=== PATIENT | male | born 1940 | race Caucasian/White ===

== ENCOUNTER → 2021-02-08 | Outpatient (CLI) | payer MEDICARE ==
--- NOTE | 2021-02-08 21:57 | CONS ---
CONSULTATION DATE OF SERVICE: 02/08/2021 80-year-old gentleman has [facility] for possible obstructive sleep apnea-hypopnea syndrome. HISTORY OF PRESENT ILLNESS: SLEEP SCHEDULE: Patient's usual sleep schedule from 10 p.m. to about 6:00 am. FALLING ASLEEP: No problems with falling asleep, although has TV set in bedroom. DURING SLEEP: Usually sleeps on the side position. According to his , he has snoring and witnessed by her episodes of stopped breathing during sleep. He wakes up from sleep 2 times with nocturia. DURING THE DAY/SLEEP WAKE EVALUATION: No history of hypnagogic hallucinations, sleep paralysis or cataplexy. [place] Sleepiness Scale is 3. Patient usually does not take any naps. PAST MEDICAL HISTORY: Positive for hypertension, BPH, acid reflux, kidney stones. PAST SURGICAL HISTORY: Surgery for kidney stones, hernia repair. MEDICATIONS: Rosuvastatin 40 mg once a day, fenofibrate 160 mg once a day, tamsulosin 0.8 mg twice a day, losartan 25 mg once a day, omeprazole 20 mg once a day, aspirin 81 mg once a day. SOCIAL HISTORY: Negative for smoking at the present time. Alcohol consumption occasional. FAMILY HISTORY: Heart problems, snoring. REVIEW OF SYSTEMS: Multiple awakenings from sleep. No chest pain. No abdominal pain. No blood in the stool or urine at the present time. PHYSICAL EXAMINATION: GENERAL: gentleman without distress. BP 140/65, HR 72, RR 15, height 5 feet 9-1/2 inches, weight 168. Temperature 97.8, oxygen saturation at room air 95%. Oropharynx extremely low position of soft palate, Mallampati 4. NECK: 15 inches in circumference. NECK: Supple, no JVD. Thyroid is not palpable. LUNGS: Clear to percussion and to auscultation. Good air exchange. No wheezing or rhonchi. HEART: S1, S2 regular. No murmurs, gallops, or rubs. ABDOMEN: Soft and nontender. Bowel sounds are present. No organomegaly appreciated. EXTREMITIES: No clubbing or cyanosis. R[employer] HELPER: Awake, alert, and oriented X3. Cranial nerves 2 to 7 intact. There is no fasciculation or atrophy. noted. No focal deficits observed. IMPRESSION: 1. Snoring witnessed episodes of stopped breathing during sleep by the . Extremely low position of soft palate, Mallampati 4. Obstructive sleep apnea- hypopnea syndrome. 2. Hypertension. 3. Benign prostatic hypertrophy. 4. Acid reflux. 5. History of kidney stones status post surgical treatment. 6. Status post right shoulder surgery. 7. Status post hernia repair many years ago. PLAN: 1. Home sleep apnea test for evaluation of patient breathing during sleep. 2. CPAP/BiPAP titration if sleep study confirms obstructive sleep apnea-hypopnea syndrome. 3. Preferable position during sleep on the side. 4. No driving if patient feels any sleepiness. 5. I will see patient for follow up visit to explain results of testing and following plan. Thank you very much for referring this patient for consultation. Sincerely, Justino Padron MD, PhD, FAASM Diplomat of [place] [employer] Sleep Medicine Board of [place] [employer] [facility] [place] MMODL / EDISONN: [id number] /
== END ==
LOC: SLEEP 15:21
PROVIDERS: ATTEND Internal Medicine
DX: G47.33 Obstructive sleep apnea (adult) (pediatric) (principal); I10 Essential (primary) hypertension; K21.9 Gastro-esophageal reflux disease without esophagitis; Z98.890 Other specified postprocedural states; N40.0 Benign prostatic hyperplasia without lower urinary tract symptoms; Z87.442 Personal history of urinary calculi; Z79.899 Other long term (current) drug therapy
CPT/HCPCS: 99202

== ENCOUNTER 2024-05-05 07:43 | Day surgery (SDC) | payer MEDICARE ==
[~2024-05-05 07:43] MED LIST: ALPRAZolam 0.25 MG TAB PO PRN; ALPRAZolam 0.5 MG TAB PO PRN; ASPIRIN 325 MG TAB PO ONE; ATORVASTATIN 80 MG TAB PO ONE; HEPARIN SODIUM,PORCINE (1 ML) 2,500 UNIT in SODIUM CHLORIDE 0.9% 250 ML IRRIGATION PRN; HEPARIN SODIUM,PORCINE 10,000 UNIT in SODIUM CHLORIDE 0.9% 1,000 ML IRRIGATION PRN; NITROGLYCERIN SL TABS 0.4 MG TAB SUBLINGUAL PRN
[2024-05-05] MEDS: SODIUM CHLORIDE 0.9% 1,000 ML in EMPTY BAG 1 BAG IV SCH (08:00)
[2024-05-05] MEDS: SODIUM CHLORIDE 0.9% 1,000 ML IV ONE (08:00)
[2024-05-05 08:03] VITALS: RESP 16; TEMP 97.1
[2024-05-05 08:08] LABS: Basophils # (A) 0.1 k/uL (0-0.2); Basophils % (A) 1 %; Eosinophils # (A) 0.3 k/uL (0-0.7); Eosinophils % (A) 5 %; HCT 44.9 % (39.0-53.0); HGB 14.3 gm/dL (13.0-17.5); Lymphocytes # (A) 1.8 k/uL (1.0-4.8); Lymphocytes % (A) 27 %; MCH 30.6 pg (25.0-35.0); MCHC 31.9 g/dL (31.0-37.0); MCV 95.7 fL (80.0-100.0); Mean Platelet Volume 8.2; Monocytes # (A) 0.4 k/uL (0-1.0); Monocytes % (A) 7 %; Neutrophils # (A) 3.8 k/uL (1.3-7.7); Neutrophils % (A) 58 %; Platelet Count 320 k/uL (150-450); RBC 4.69 m/uL (4.30-5.90); RDW 13.8 % (11.5-15.5); WBC 6.6 k/uL (3.8-10.6)
[2024-05-05 08:22] LABS: African American GFR (CKD) 55 (>60 ml/min/1.73 sqM); Anion Gap 8 mmol/L; Blood Urea Nitrogen 30 mg/dL (9-20); Calcium 9.9 mg/dL (8.4-10.2); Carbon Dioxide 26 mmol/L (22-30); Chloride 107 mmol/L (98-107); Glucose 96 mg/dL (74-99); Non-African American GFR(CKD) 47 (>60 ml/min/1.73 sqM); Potassium 4.5 mmol/L (3.5-5.1); Sodium 141 mmol/L (137-145)
[2024-05-05] MEDS: fentaNYL (PF) 50 MCG/ML 2 ML AMP IVP ONE (09:09)
[2024-05-05] MEDS: MIDAZOLAM 2 MG/2 ML VIAL IVP ONE (09:09)
[2024-05-05] MEDS: LIDOCAINE 1% INJ 10MG/ML (20 ML MDV) SQ ONE (09:10)
[2024-05-05] MEDS: VERAPAMIL SYRINGE (5 MG/10 ML) INTRAARTER ONE (09:11)
[2024-05-05] MEDS: HEPARIN SODIUM 1,000 UN/ML (10ML VL) IV ONE (09:14)
[2024-05-05] MEDS: IOPAMIDOL-370 100ML BTL INJ ONE (09:25)
[2024-05-05 12:49] VITALS: BP 131/63; PULSE 54
--- NOTE | 2024-05-05 13:10 | P.CARDCATH ---
Description of Procedure: PROCEDURES PERFORMED: Left heart catheterization, bilateral coronary angiography, ultrasound guided arterial access INDICATION: cardiomyopathy CONSENT:I have discussed the risks, benefits and alternative therapies for the above-mentioned procedure and for both sedation/analgesia as well as necessary blood product administration, if indicated, as they pertain to this patient. The patient has indicated understanding and acceptance of the risks and procedures discussed. PROCEDURE: After the risks, benefits and alternatives of the above mentioned procedure explained in detail with the patient, informed consent was obtained. Patient was taken to the catheterization lab and prepped and draped in usual fashion. Ultrasound guidance was used to assess for arterial access. 1% lidocaine was used to anesthetize the right radial artery. A 6-Portuguese sheath was placed in the right radial artery using modified Seldinger technique and ultrasound guidance. Left coronary angiography was performed with a 5-Portuguese JL 3.5 catheter and right coronary angiography was performed with a 5-Portuguese FR5 catheter in various views. A 5-Portuguese FR5 catheter was inserted into the left ventricle and pressure measurements were obtained. The right radial sheath was removed and a TR band was placed with hemostasis achieved. The patient tolerate d the procedure well. Patient was transported back to the post catheterization holding area in stable condition. Conscious Sedation: Patient was monitored under the direct supervision of myself for conscious sedation using Versed and fentanyl for a total duration of 10 minutes HEMODYNAMICS: aorta: 141/76 LV: 142/5, LVEDP 17 SELECTIVE CORONARY ARTERIOGRAPHY: LEFT MAIN: The left main is a large caliber vessel which bifurcates into the LAD and circumflex. There is no significant stenosis. LEFT ANTERIOR DESCENDING CORONARY ARTERY: LAD is a large caliber vessel which wraps around to the apex. There are mild luminal irregularities LEFT CIRCUMFLEX CORONARY ARTERY: Left circumflex is a moderate caliber vessel with mid circumflex 30-40%. RIGHT CORONARY ARTERY: The right coronary artery is a large caliber vessel which gives off a PDA and PLV branch and is the dominant vessel. There is mid 30-40% stenosis. FINAL IMPRESSION: 1. CAD as described above including 30-40% RCA and 30-40% circumflex stenosis 2. Mildly elevated left sided filling pressures PLAN: 1. Aggressive risk factor modification per most recent ACC/AHA guidelines. 2. Follow-up in the office in 1-2 weeks.
== END 2024-05-05 13:16 | disposition home or self-care (01) ==
LOC: CATHCVL 07:43
PROVIDERS: ATTEND Internal Medicine
DX: I25.10 Atherosclerotic heart disease of native coronary artery without angina pectoris (principal); I11.0 Hypertensive heart disease with heart failure; I50.22 Chronic systolic (congestive) heart failure; I42.8 Other cardiomyopathies; I65.23 Occlusion and stenosis of bilateral carotid arteries; E78.2 Mixed hyperlipidemia; I44.7 Left bundle-branch block, unspecified; I21.4 Non-ST elevation (NSTEMI) myocardial infarction; F17.200 Nicotine dependence, unspecified, uncomplicated; Z79.899 Other long term (current) drug therapy
CPT/HCPCS: 80048; 85025; 93458; 99152; J2250; J2003; J3010; J1644; Q9967